=== PATIENT | male | born 1945 | race Caucasian/White ===

== ENCOUNTER 2018-06-29 02:20 | Emergency (ER) | payer MEDICARE ==
[2018-06-29 02:20] VITALS: BMI 26.1
[2018-06-29 02:30] VITALS: O2SAT 99
[2018-06-29 03:32] LABS: BASO % 0.7 % (0.0-2.0); EOS # 0.2 K/uL (0.0-0.7); EOS % 3.1 % (0.0-4.0); HEMOGLOBIN 14.2 g/dL (12.0-18.0); LYMPH # 2.7 K/uL (1.0-4.3); LYMPH % 38.4 % (20.0-40.0); MEAN CELL VOLUME 83.7 fl (80.0-94.0); MEAN CORPUSCULAR HGB CONC 33.5 g/dL (33.0-37.0); MEAN PLATELET VOLUME 10.1 fl (7.2-11.7); MONO # 0.7 K/uL (0.0-0.8); MONO % 9.9 % (0.0-10.0); NEUT # 3.3 K/uL (1.8-7.0); NEUT % 47.9 % (50.0-75.0); NRBC % 0.1 % (0.0-0.0); RBC 5.08 Mil/uL (4.40-5.90); RED CELL DISTRIBUTION WIDTH 15.1 % (11.5-14.5); WHITE BLOOD COUNT 6.9 K/uL (4.8-10.8)
--- NOTE | 2018-06-29 03:32 | ED PDOC ---
HPI: Chest Pain Time Seen by Provider: 06/29/18 02:32 Chief Complaint (Nursing): Chest Pain Chief Complaint (Provider): Chest pain History Per: Patient History/Exam Limitations: no limitations Onset/Duration Of Symptoms: Hrs (x1) Current Symptoms Are (Timing): Gone Now Additional Complaint(s): Abe Schaffer is a 72 year old male, with a past medical history of CAD, HTN, thyroid problems, diabetes and CVA, who was brought to the emergency department by EMS for evaluation of chest pain onset approximately x1 hr ago. Patient describes the pain as a burning sensation that comes from the throat and radiates down to chest and left arm. Patient states sensation lasted for a few minutes. When ALS arrived patient still had pain, they gave him aspirin and nitro. Per ALS, patient was A-fib with RVR on scene, before they tried to give medication patient spontaneously converted to sinus. As soon as rapid heart rate resolved, patient states the burning went away. He denies any current headache, chest pain, shortness of breath or history of A-fib. No further medical complaints. PMD: Saqib Durand Against Medical Advice - AMA Patient Left Against Medical Advice: The patient declines admission to the hospital and wishes to leave the Emergency Department. This action is against my medical advice. This decision was made with informed refusal. The patient was told that admission to the hospital is necessary. Explanation of the reasons why were discussed. The risks of leaving were explained to the patient and include, but are not limited to, worsening of known or currently unknown conditions, permanent disability and from undiagnosed or untreated conditions. The patient has the capacity to make this informed decision and understands my explanation of the current medical problem and risks of leaving. The patient voluntarily accepts these risks and signed an AMA form documenting our conversation. The patient was given the opportunity to ask questions and reconsider. The patient was encouraged to return to the Emergency Department at any time for further care. Past Medical History Reviewed: Historical Data, Nursing Documentation, Vital Signs Vital Signs: Last Vital Signs Temp 98.7 F 06/29/18 02:26 Pulse 85 06/29/18 02:26 Resp 16 06/29/18 02:26 BP 133/86 06/29/18 02:26 Pulse Ox 99 06/29/18 02:26 - Medical History PMH: CAD, CVA, Diabetes, HTN, Hypercholesterolemia, Hypothyroidism Denies: Chronic Kidney Disease - Surgical History Surgical History: CABG, Carotid Endarterectomy, Coronary Stent - Family History Family History: States: Unknown Family Hx - Home Medications Home Medications: Ambulatory Orders Medication Instructions Recorded Clopidogrel [Plavix] 75 mg PO DAILY 06/29/18 Glipizide [Glipizide ER] 10 mg PO BID 06/29/18 RX: Allopurinol [Zyloprim] 100 mg PO DAILY 06/29/18 RX: Aspirin [Ecotrin] 81 mg PO DAILY 06/29/18 RX: Fenofibrate [Tricor] 1 tab PO DAILY 06/29/18 RX: Levothyroxine [Synthroid] 1 tab PO DAILY 06/29/18 RX: Lisinopril [Zestril] 20 mg PO DAILY 06/29/18 RX: Metoprolol Tartrate [Lopressor] 50 mg PO BID 06/29/18 RX: Rosuvastatin Calcium [Crestor] 20 mg PO DAILY 06/29/18 SITagliptin [Januvia] 50 mg PO DAILY 06/29/18 - Allergies Allergies/Adverse Reactions: Allergies Allergy/AdvReac Type Severity Reaction Status Date / Time No Known Allergies Allergy Verified 06/29/18 02:25 BESS Risk Score for UA/NSTEMI - BESS Risk Score Age > 64: YES 3 or more CAD Risk Factors: YES Known CAD (Stenosis greater than 50%): NO Aspirin use in past 7 days: NO Severe Angina: NO EKG ST changes greater than 0.5mm: NO Positive Cardiac Marker: NO BESS Score: 2 Risk %: 8% Wells Criteria for PE - Wells Criteria for Pulmonary Embolism Clinical Signs and Symptoms of DVT: No P.E is #1 Diagnosis, or Equally Likely: No Heart Rate >100: No Immobilization at least 3 days;Surgery previous 4 weeks: No Previous, objectively diagnosed PE or DVT: No Hemoptysis: No Malignancy w/treatment within 6 months, or palliative: No Total Score: 0 Review of Systems ROS Statement: Except As Marked, All Systems Reviewed And Found Negative Cardiovascular: Negative for: Chest Pain Respiratory: Negative for: Shortness of Breath Neurological: Negative for: Headache Physical Exam - Reviewed Nursing Documentation Reviewed: Yes Vital Signs Reviewed: Yes - Physical Exam Appears: Positive for: No Acute Distress (comfortable) Head Exam: Positive for: ATRAUMATIC, NORMAL INSPECTION, NORMOCEPHALIC Skin: Positive for: Normal Color, Warm, Dry Eye Exam: Positive for: Normal appearance, EOMI, PERRL Neck: Positive for: Painless ROM Cardiovascular/Chest: Positive for: Regular Rate, Rhythm. Negative for: Murmur Respiratory: Positive for: Normal Breath Sounds. Negative for: Respiratory Distress Gastrointestinal/Abdominal: Positive for: Normal Exam, Soft. Negative for: Tenderness Back: Positive for: Normal Inspection. Negative for: Vertebral Tenderness Extremity: Positive for: Normal ROM (upper and lower extremities). Negative for: Deformity, Swelling Neurologic/Psych: Positive for: Alert, Oriented - Laboratory Results Result Diagrams: 06/29/18 02:30 06/29/18 02:30 - ECG O2 Sat by Pulse Oximetry: 99 (RA) Pulse Ox Interpretation: Normal Medical Decision Making Medical Decision Making: Time: 02:32 Initial Impression: Chest pain, Paroxysmal A-fib RVR currently resolved. Differential includes: A-fib with RVR with chest pain r/o ACS. Initial Plan: --EKG --B-Type Natriuretic Peptide --BMP --Troponin I --CBC w/ differential --PTT --PT --Chest one view [RAD] --Reevaluation EKG: Normal sinus @ 87 bpm. Normal QRS, no ST changes. ---- - Scribe Attestation: Documented by Pavan Bustamante, acting as a scribe for Willy Theodore MD. Provider Scribe Attestation: All medical record entries made by the Scribe were at my direction and personally dictated by me. I have reviewed the chart and agree that the record accurately reflects my personal performance of the history, physical exam, medical decision making, and the department course for this patient. I have also personally directed, reviewed, and agree with the discharge instructions and disposition. Disposition - Clinical Impression Clinical Impression: Chest pain, Atrial fibrillation with RVR, Left against medical advice - Patient ED Disposition Is Patient to be Admitted: No Doctor Will See Patient In The: Office Counseled Patient/Family Regarding: Studies Performed, Diagnosis, Need For Followup - Disposition Referrals: Saqib Durand MD [Staff Provider] - Tim Cat MD [Staff Provider] - Disposition: Against Medical Advice Disposition Time: 04:12 Condition: STABLE Additional Instructions: ABE SCHAFFER, thank you for letting us take care of you today. Your provider was Willy Theodore MD and you were treated for CHEST PAIN. The emergency medical care you received today was directed at your acute symptoms. If you were prescribed any medication, please fill it and take as directed. It may take several days for your symptoms to resolve. Return to the Emergency Department if your symptoms worsen, do not improve, or if you have any other problems. Please contact your doctor or call one of the physicians/clinics you have been referred to that are listed on the Patient Visit Information form that is included in your discharge packet. Bring any paperwork you were given at discharge with you along with any medications you are taking to your follow up visit. Our treatment cannot replace ongoing medical care by a primary care provider outside of the emergency department. Thank you for allowing the [facility] team to be part of your care today. If you had an X-Ray or CT scan: A Radiologist will review the ED reading if any change in treatment is needed we will contact you. If you had a blood, urine, or wound culture: It will take several days for the results, if any change in treatment is needed we will contact you. If you had an STI test: It will take 48 hours for the results. Please call after 1 week if you have not heard back. Instructions: Atrial Fibrillation, Chest Pain, Leaving Against Medical Advice Forms: [email or web address] (Maltese) Print Language: POLISH
[2018-06-29 03:40] LABS: BLOOD UREA NITROGEN 33 mg/dl (9-20); CALCIUM 9.3 mg/dL (8.4-10.2); GFR NON-AFRICAN AMERICAN 43
[2018-06-29 03:43] LABS: INR 0.9; PROTHROMBIN TIME 10.4 Seconds (9.8-13.1)
[2018-06-29 03:45] LABS: PARTIAL THROMBOPLASTIN TIME 28.6 Seconds (25.6-37.1)
[2018-06-29 03:52] LABS: B-TYPE NATRIURETIC PEPTIDE 250 pg/ml (0-900)
[2018-06-29 04:20] VITALS: BP 133/76; PULSE 69; RESP 17; TEMP 98.2
--- NOTE | 2018-06-29 16:57 | RAD ---
Date of service: 06/29/2018 PROCEDURE: CHEST RADIOGRAPH, 1 VIEW HISTORY: chest pain COMPARISON: Comparison is made with 01/19/2015 FINDINGS: LUNGS: No evidence of new infiltrate or consolidation in the lungs PLEURA: No pneumothorax or pleural fluid seen. CARDIOVASCULAR: Normal. OSSEOUS STRUCTURES: No significant abnormalities. VISUALIZED UPPER ABDOMEN: Normal. OTHER FINDINGS: None. IMPRESSION: No active disease.
--- NOTE | 2018-06-29 16:58 | CARD ---
APPROVED REPORT Date of service: 06/29/2018 EKG Measurement Heart [id number] HI [id number] <Conclusion> Normal sinus rhythm Rightward axis Inferior infarct, age undetermined Abnormal ECG
== END 2018-06-29 04:25 | disposition left against medical advice (07) ==
LOC: H.ER 02:20
DX: R07.89 Other chest pain (principal); I48.0 Paroxysmal atrial fibrillation; E03.9 Hypothyroidism, unspecified; E11.9 Type 2 diabetes mellitus without complications; E78.00 Pure hypercholesterolemia, unspecified; I10 Essential (primary) hypertension; Z79.84 Long term (current) use of oral hypoglycemic drugs; Z86.73 Personal history of transient ischemic attack (TIA), and cerebral infarction without residual deficits; Z95.1 Presence of aortocoronary bypass graft; Z95.5 Presence of coronary angioplasty implant and graft; Z79.899 Other long term (current) drug therapy